=== PATIENT | female | born 1945 | race Caucasian/White ===

== ENCOUNTER 2017-07-22 12:16 | Observation (INO) | payer MEDICARE, OTHER ==
[~2017-07-22] VITALS: Ht 170.2 cm; Wt 88.1 kg
[~2017-07-22 12:16] MED LIST: ASCO500 PO; ASPI81EC PO; ATOR80 PO; Black Cohosh540 MG PO; CALCAVITD PO; CHOL10002 PO; CO Q10200 MG PO; CYAN500 PO; ESTR.75 PO; ESTROPIPATE; EZET10-80 PO; MAGGLU250 PO; MAGOXI400 PO; MEGARED OMEGA-1 EAC1 PO; MELA3 PO; MULVITMIND PO; NEBI5 PO; NIAC500 PO; OMEG1CAP30 PO; Omeprazole20 M1 PO; SIMV40 PO; Super B Comple150 MG PO; TOCO400 PO
[2017-07-22 12:56] LABS: BASOPHILS ABSOLUTE AUTO 0.04 K/mm3 (0.00-0.23); BASOPHILS PERCENT AUTO 1 % (0-2); EOSINOPHILS ABSOLUTE AUTO 0.09 K/mm3 (0.00-0.68); EOSINOPHILS PERCENT AUTO 1 % (0-6); Hematocrit 41.3 % (33.0-51.0); Hemoglobin 13.9 g/dL (11.5-16.0); IMMATURE GRAN ABSOLUTE AUTO 0.02 K/mm3 (0.00-0.10); IMMATURE GRAN PERCENT AUTO 0 % (0-1); LYMPHOCYTES ABSOLUTE AUTO 2.77 K/mm3 (0.84-5.20); LYMPHOCYTES PERCENT AUTO 36 % (21-46); MONOCYTES ABSOLUTE AUTO 0.58 K/mm3 (0.16-1.47); MONOCYTES PERCENT AUTO 8 % (4-13); Mean Corpuscular HGB Conc 33.7 g/dL (31.5-36.5); Mean Corpuscular Volume 95 fL (80-100); Mean Platelet Volume 10.3 fL (9.1-12.4); NEUTROPHILS ABSOLUTE AUTO 4.28 K/mm3 (1.96-9.15); NEUTROPHILS PERCENT AUTO 55 % (41-73); Platelet Count 250 K/mm3 (150-400); RDW Coefficient Variation 11.7 % (11.7-14.2); RDW Standard Deviation 40.2 fL (35.1-46.3); Red Blood Cell Count 4.35 M/mm3 (3.80-5.20); White Blood Cell Count 7.78 K/mm3 (4.00-11.30)
[2017-07-22 13:18] LABS: Alanine Aminotransfer (ALT/SGP 28 U/L (12-78); Albumin/Globulin Ratio 1.1 (0.8-1.8); Alk Phos 74 U/L (50-136); Anion Gap 10 mmol/L (6-16); Aspartate Aminotrans (AST/SGOT 18 U/L (12-37); Bilirubin, Total 0.7 mg/dL (0.1-1.0); Blood Urea Nitrogen 16 mg/dL (8-24); CO2, Blood 24 mmol/L (21-32); Calcium, Blood 8.8 mg/dL (8.5-10.1); Chloride, Blood 106 mmol/L (98-108); Globulin, Blood 3.5 g/dL (2.2-4.0); Glomerular Filtration Rate >60 (60-); Glucose, Blood 98 mg/dL (70-99); Potassium, Blood 4.2 mmol/L (3.5-5.5); Sodium, Blood 140 mmol/L (136-145); Total Protein, Blood 7.5 g/dL (6.4-8.2)
[2017-07-22] MEDS ORDERED: NEBI5 PO (14:03)
[2017-07-22] MEDS ORDERED: ATOR80 PO (14:03)
[2017-07-22] MEDS ORDERED: Omeprazole20 M1 PO (14:03)
[2017-07-22] MEDS ORDERED: ASPI81CH PO (16:38)
[2017-07-22] MEDS ORDERED: MAGOXI400 PO (16:39)
[2017-07-22] MEDS ORDERED: UBID100 PO (16:40)
[2017-07-22] MEDS ORDERED: Super B Comple1 EAC2 PO (16:40)
[2017-07-22] MEDS ORDERED: KRILL OIL 1,001 EACH PO (16:42)
[2017-07-22] MEDS ORDERED: MULTI VITAMIN1 EACH PO (16:43)
[2017-07-22] MEDS ORDERED: FISH OIL 1,0001 EAC1 PO (16:44)
[2017-07-23 05:47] LABS: BASOPHILS ABSOLUTE AUTO 0.03 K/mm3 (0.00-0.23); BASOPHILS PERCENT AUTO 1 % (0-2); EOSINOPHILS ABSOLUTE AUTO 0.09 K/mm3 (0.00-0.68); EOSINOPHILS PERCENT AUTO 2 % (0-6); Hematocrit 38.6 % (33.0-51.0); IMMATURE GRAN ABSOLUTE AUTO 0.01 K/mm3 (0.00-0.10); IMMATURE GRAN PERCENT AUTO 0 % (0-1); LYMPHOCYTES ABSOLUTE AUTO 2.72 K/mm3 (0.84-5.20); LYMPHOCYTES PERCENT AUTO 45 % (21-46); MONOCYTES PERCENT AUTO 8 % (4-13); Mean Corpuscular HGB 31.3 pg (26.0-34.0); Mean Corpuscular HGB Conc 33.7 g/dL (31.5-36.5); Mean Corpuscular Volume 93 fL (80-100); Mean Platelet Volume 10.5 fL (9.1-12.4); NEUTROPHILS ABSOLUTE AUTO 2.69 K/mm3 (1.96-9.15); NEUTROPHILS PERCENT AUTO 45 % (41-73); Platelet Count 206 K/mm3 (150-400); RDW Coefficient Variation 11.9 % (11.7-14.2); RDW Standard Deviation 40.4 fL (35.1-46.3); Red Blood Cell Count 4.16 M/mm3 (3.80-5.20); White Blood Cell Count 6.04 K/mm3 (4.00-11.30)
[2017-07-23 06:09] LABS: Albumin, Blood 3.6 g/dL (3.4-5.0); Anion Gap 8 mmol/L (6-16); Blood Urea Nitrogen 13 mg/dL (8-24); Bun/Creatinine Ratio 16.8 (12.0-20.0); CO2, Blood 26 mmol/L (21-32); Calcium, Blood 8.7 mg/dL (8.5-10.1); Chloride, Blood 106 mmol/L (98-108); Creatinine, Blood 0.78 mg/dL (0.40-1.00); Glomerular Filtration Rate >60 (60-); Glucose, Blood 95 mg/dL (70-99); Phosphorus, Blood 4.3 mg/dL (2.5-4.9); Sodium, Blood 140 mmol/L (136-145)
[2017-07-23] MEDS ORDERED: Prinivil10 MG PO (09:31)
== END 2017-07-23 10:48 | disposition home or self-care (01) ==
LOC: ER 12:16 → MEDS 12:17 → ER 15:12 → MEDS 15:12 → ENPENDDIS 07-23 09:03 → MEDS 07-23 10:48
PROVIDERS: Emergency Medicine; Hospitalist
DX: R07.9 Chest pain, unspecified (principal); E78.5 Hyperlipidemia, unspecified; K21.9 Gastro-esophageal reflux disease without esophagitis; E78.00 Pure hypercholesterolemia, unspecified; I16.0 Hypertensive urgency; K22.70 Barrett's esophagus without dysplasia; Z88.1 Allergy status to other antibiotic agents; Z91.041 Radiographic dye allergy status; Z79.899 Other long term (current) drug therapy; Z87.891 Personal history of nicotine dependence
CPT/HCPCS: 36415; 71046; 80053; 80069; 83880; 84484; 85025; 93005; 93010; 99285; G0378; J1650

== ENCOUNTER 2017-07-26 22:25 | Emergency (ER) | payer MEDICARE, OTHER ==
[~2017-07-26] VITALS: Ht 170.2 cm; Wt 81.7 kg
[~2017-07-26 22:25] MED LIST changes: +ASPI81CH PO; +FISH OIL 1,0001 EAC1 PO; +KRILL OIL 1,001 EACH PO; +MULTI VITAMIN1 EACH PO; +Prinivil10 MG PO; +Super B Comple1 EAC2 PO; +UBID100 PO
[2017-07-26 23:14] LABS: BASOPHILS ABSOLUTE AUTO 0.03 K/mm3 (0.00-0.23); BASOPHILS PERCENT AUTO 1 % (0-2); EOSINOPHILS ABSOLUTE AUTO 0.06 K/mm3 (0.00-0.68); EOSINOPHILS PERCENT AUTO 1 % (0-6); Hematocrit 38.9 % (33.0-51.0); IMMATURE GRAN ABSOLUTE AUTO 0.01 K/mm3 (0.00-0.10); IMMATURE GRAN PERCENT AUTO 0 % (0-1); LYMPHOCYTES ABSOLUTE AUTO 2.81 K/mm3 (0.84-5.20); LYMPHOCYTES PERCENT AUTO 43 % (21-46); MONOCYTES ABSOLUTE AUTO 0.49 K/mm3 (0.16-1.47); MONOCYTES PERCENT AUTO 7 % (4-13); Mean Corpuscular HGB 31.7 pg (26.0-34.0); Mean Corpuscular HGB Conc 33.4 g/dL (31.5-36.5); Mean Corpuscular Volume 95 fL (80-100); Mean Platelet Volume 10.5 fL (9.1-12.4); NEUTROPHILS PERCENT AUTO 48 % (41-73); Platelet Count 238 K/mm3 (150-400); RDW Coefficient Variation 11.8 % (11.7-14.2); RDW Standard Deviation 40.6 fL (35.1-46.3)
[2017-07-26 23:35] LABS: Alanine Aminotransfer (ALT/SGP 39 U/L (12-78); Albumin, Blood 3.8 g/dL (3.4-5.0); Albumin/Globulin Ratio 1.1 (0.8-1.8); Alk Phos 72 U/L (50-136); Anion Gap 10 mmol/L (6-16); Aspartate Aminotrans (AST/SGOT 24 U/L (12-37); Bilirubin, Total 0.4 mg/dL (0.1-1.0); Blood Urea Nitrogen 14 mg/dL (8-24); Bun/Creatinine Ratio 17.6 (12.0-20.0); CO2, Blood 22 mmol/L (21-32); Calcium, Blood 8.3 mg/dL (8.5-10.1); Chloride, Blood 107 mmol/L (98-108); Globulin, Blood 3.6 g/dL (2.2-4.0); Glomerular Filtration Rate >60 (60-); Glucose, Blood 113 mg/dL (70-99); Potassium, Blood 3.8 mmol/L (3.5-5.5); Sodium, Blood 139 mmol/L (136-145); Total Protein, Blood 7.4 g/dL (6.4-8.2); Troponin I <0.015 ng/mL (0.000-0.040)
== END 2017-07-27 02:39 | disposition home or self-care (01) ==
LOC: ER 22:25
PROVIDERS: Emergency Medicine
DX: R55 Syncope and collapse (principal); Z88.8 Allergy status to other drugs, medicaments and biological substances; Z79.899 Other long term (current) drug therapy; Z79.82 Long term (current) use of aspirin; Z86.73 Personal history of transient ischemic attack (TIA), and cerebral infarction without residual deficits; Z87.891 Personal history of nicotine dependence
CPT/HCPCS: 36415; 70450; 80053; 83880; 84484; 85025; 93005; 93010; 99284

== ENCOUNTER → 2017-12-15 | Outpatient (CLI) | payer MEDICARE, OTHER ==
[2017-12-15 10:51] LABS: BASOPHILS ABSOLUTE AUTO 0.04 K/mm3 (0.00-0.23); BASOPHILS PERCENT AUTO 1 % (0-2); EOSINOPHILS ABSOLUTE AUTO 0.14 K/mm3 (0.00-0.68); EOSINOPHILS PERCENT AUTO 2 % (0-6); Hematocrit 39.6 % (33.0-51.0); Hemoglobin 13.6 g/dL (11.5-16.0); IMMATURE GRAN ABSOLUTE AUTO 0.01 K/mm3 (0.00-0.10); IMMATURE GRAN PERCENT AUTO 0 % (0-1); LYMPHOCYTES ABSOLUTE AUTO 1.71 K/mm3 (0.84-5.20); LYMPHOCYTES PERCENT AUTO 25 % (21-46); MONOCYTES ABSOLUTE AUTO 0.46 K/mm3 (0.16-1.47); MONOCYTES PERCENT AUTO 7 % (4-13); Mean Corpuscular HGB 32.2 pg (26.0-34.0); Mean Corpuscular HGB Conc 34.3 g/dL (31.5-36.5); Mean Corpuscular Volume 94 fL (80-100); Mean Platelet Volume 10.5 fL (9.1-12.4); NEUTROPHILS ABSOLUTE AUTO 4.46 K/mm3 (1.96-9.15); NEUTROPHILS PERCENT AUTO 65 % (41-73); Platelet Count 238 K/mm3 (150-400); RDW Coefficient Variation 12.1 % (11.7-14.2); RDW Standard Deviation 41.6 fL (35.1-46.3); Red Blood Cell Count 4.22 M/mm3 (3.80-5.20); White Blood Cell Count 6.82 K/mm3 (4.00-11.30)
[2017-12-15 11:07] LABS: Anion Gap 9 mmol/L (6-16); Blood Urea Nitrogen 15 mg/dL (8-24); CO2, Blood 25 mmol/L (21-32); Calcium, Blood 8.6 mg/dL (8.5-10.1); Chloride, Blood 106 mmol/L (98-108); Creatinine, Blood 0.88 mg/dL (0.40-1.00); Glomerular Filtration Rate >60 (60-); Glucose, Blood 106 mg/dL (70-99); Potassium, Blood 4.2 mmol/L (3.5-5.5); Sodium, Blood 140 mmol/L (136-145); Thyroid Stimulating Hormone 2.206 uIU/mL (0.360-4.800)
[2017-12-15 11:08] LABS: Troponin I <0.017 ng/mL (0.000-0.040)
== END ==
LOC: LAB EV 10:40 → LAB SHORT 10:40
PROVIDERS: Family Medicine
DX: R03.0 Elevated blood-pressure reading, without diagnosis of hypertension (principal); R53.83 Other fatigue
CPT/HCPCS: 80048; 84443; 84484; 85025

== ENCOUNTER → 2018-09-18 | Outpatient (CLI) | payer MEDICARE, OTHER ==
[~2018-09-18] MED LIST changes: +CHOL10002
[2018-09-18 13:39] LABS: Adenovirus F 40/41 Not Detected (NOT DETECT); Astrovirus Not Detected (NOT DETECT); Campylobacter Sp Not Detected (NOT DETECT); Cryptosporidium Not Detected (NOT DETECT); Cyclospora Cayetanensis Not Detected (NOT DETECT); E. Coli O157 Not Detected (NOT DETECT); Entamoeba Histolytica Not Detected (NOT DETECT); Enteroaggregative E. coli-EAEC Not Detected (NOT DETECT); Enteropathogenic E. coli-EPEC Not Detected (NOT DETECT); Enterotoxigenic E. coli-ETEC Not Detected (NOT DETECT); Giardia Lamblia Not Detected (NOT DETECT); Norovirus GI/GII Not Detected (NOT DETECT); Plesiomonas Shigelloides Not Detected (NOT DETECT); Rotavirus A Not Detected (NOT DETECT); Salmonella Sp Not Detected (NOT DETECT); Sapovirus Not Detected (NOT DETECT); Shiga Toxin-prod E. coli-STEC Not Detected (NOT DETECT); Shigella/Enteroin E. coli-EIEC Not Detected (NOT DETECT); Vibrio Cholerae Not Detected (NOT DETECT); Vibrio Sp Not Detected (NOT DETECT); Yersinia Enterocolitica Not Detected (NOT DETECT)
== END | disposition home or self-care (01) ==
LOC: LAB SHORT 10:00 → LAB 10:00 → LAB FUT 09-18 08:25
PROVIDERS: Physician Assistant
DX: R19.7 Diarrhea, unspecified (principal)
CPT/HCPCS: 87507

== ENCOUNTER 2020-11-23 09:10 | Day surgery (SDC) | payer MEDICARE, OTHER ==
[~2020-11-23] VITALS: Ht 170.2 cm; Wt 88.1 kg
== END 2020-11-23 10:28 | disposition home or self-care (01) ==
LOC: ORSCSDS 09:10
PROVIDERS: Internal Medicine Gastroenterology
PROC: 0DB58ZX Excision of Esophagus, Via Natural or Artificial Opening Endoscopic, Diagnostic (ICD-10-PCS; principal; 2020-11-23 10:30)
DX: K21.9 Gastro-esophageal reflux disease without esophagitis (principal); K22.70 Barrett's esophagus without dysplasia; K44.9 Diaphragmatic hernia without obstruction or gangrene; Z79.899 Other long term (current) drug therapy
CPT/HCPCS: 88305; J2704; J7120

== ENCOUNTER 2021-04-22 02:58 | Emergency (ER) | payer MEDICARE, OTHER ==
[~2021-04-22] VITALS: Ht 170.2 cm; Wt 81.7 kg
[2021-04-22] MEDS ORDERED: AMLO5 PO (03:33)
[2021-04-22 04:01] LABS: BASOPHILS ABSOLUTE AUTO 0.03 K/mm3 (0.00-0.23); BASOPHILS PERCENT AUTO 0 % (0-2); EOSINOPHILS ABSOLUTE AUTO 0.12 K/mm3 (0.00-0.68); EOSINOPHILS PERCENT AUTO 1 % (0-6); Hematocrit 36.7 % (33.0-51.0); Hemoglobin 12.7 g/dL (11.5-16.0); IMMATURE GRAN ABSOLUTE AUTO 0.03 K/mm3 (0.00-0.10); IMMATURE GRAN PERCENT AUTO 0 % (0-1); LYMPHOCYTES ABSOLUTE AUTO 1.66 K/mm3 (0.84-5.20); LYMPHOCYTES PERCENT AUTO 18 % (21-46); MONOCYTES ABSOLUTE AUTO 0.96 K/mm3 (0.16-1.47); MONOCYTES PERCENT AUTO 11 % (4-13); Mean Corpuscular HGB Conc 34.6 g/dL (31.5-36.5); Mean Corpuscular Volume 92 fL (80-100); Mean Platelet Volume 10.2 fL (9.1-12.4); NEUTROPHILS ABSOLUTE AUTO 6.23 K/mm3 (1.96-9.15); NEUTROPHILS PERCENT AUTO 69 % (41-73); Platelet Count 233 K/mm3 (150-400); RDW Standard Deviation 41.2 fL (35.1-46.3); Red Blood Cell Count 3.97 M/mm3 (3.80-5.20); White Blood Cell Count 9.03 K/mm3 (4.00-11.30)
[2021-04-22 04:21] LABS: Albumin, Blood 3.8 g/dL (3.4-5.0); Albumin/Globulin Ratio 1.1 (0.8-1.8); Bilirubin, Total 0.9 mg/dL (0.1-1.0); Bun/Creatinine Ratio 10.8 (12.0-20.0); Calcium, Blood 8.5 mg/dL (8.5-10.1); Creatinine, Blood 1.02 mg/dL (0.40-1.00); Globulin, Blood 3.5 g/dL (2.2-4.0); Potassium, Blood 3.5 mmol/L (3.5-5.5); Total Protein, Blood 7.3 g/dL (6.4-8.2); Troponin I 0.015 ng/mL (0.000-0.040)
[2021-04-22 04:37] LABS: Influenza A, PCR NEGATIVE (NEGATIVE); Influenza B, PCR NEGATIVE (NEGATIVE); Resp Syncytial Virus, PCR NEGATIVE (NEGATIVE); SARS-Cov-2 (COVID-19) PCR, MMC NEGATIVE (NEGATIVE)
[2021-04-22] MEDS ORDERED: AMOCLA875 PO (04:52)
== END 2021-04-22 05:10 | disposition home or self-care (01) ==
LOC: ER 02:58
PROVIDERS: Student in an Organized Health Care Education/Training Program
DX: R05.9 Cough, unspecified (principal); R09.81 Nasal congestion; H66.90 Otitis media, unspecified, unspecified ear; Z20.822 Contact with and (suspected) exposure to COVID-19; Z88.1 Allergy status to other antibiotic agents; Z79.899 Other long term (current) drug therapy; Z79.82 Long term (current) use of aspirin; Z87.891 Personal history of nicotine dependence
CPT/HCPCS: 0241U; 36415; 71045; 80053; 84484; 85025; 93005; 93010; 96374; 99284-25; A9270; J1885

== ENCOUNTER 2022-07-06 14:20 | Day surgery (SDC) | payer MEDICARE, OTHER ==
[~2022-07-06 14:20] MED LIST changes: +AMLO5 PO; +AMOCLA875 PO
[2022-07-06] MEDS ORDERED: LOSA50 PO (14:40)
[2022-07-06] MEDS ORDERED: Inderal40 MG PO (14:41)
== END 2022-07-06 16:50 | disposition home or self-care (01) ==
LOC: ATC 14:20
DX: E83.42 Hypomagnesemia (principal); I10 Essential (primary) hypertension; Z90.711 Acquired absence of uterus with remaining cervical stump; K21.9 Gastro-esophageal reflux disease without esophagitis; E78.5 Hyperlipidemia, unspecified; Z96.641 Presence of right artificial hip joint; Z86.73 Personal history of transient ischemic attack (TIA), and cerebral infarction without residual deficits
CPT/HCPCS: 96365; 96366; J3475

== ENCOUNTER 2022-08-03 02:51 | Day surgery (SDC) | payer MEDICARE, OTHER ==
[~2022-08-03 02:51] MED LIST changes: +Inderal40 MG PO; +LOSA50 PO
[2022-08-03 13:30] VITALS: BP 131/71
== END 2022-08-03 15:38 | disposition home or self-care (01) ==
LOC: ATC 02:51
DX: E83.42 Hypomagnesemia (principal); G47.33 Obstructive sleep apnea (adult) (pediatric); K22.70 Barrett's esophagus without dysplasia
CPT/HCPCS: 96365; 96366; J3475

== ENCOUNTER 2022-09-12 17:28 | Emergency (ER) | payer MEDICARE, OTHER ==
[~2022-09-12] VITALS: Ht 162.6 cm; Wt 90.7 kg
[2022-09-12 17:54] LABS: BASOPHILS ABSOLUTE AUTO 0.03 K/mm3 (0.00-0.23); BASOPHILS PERCENT AUTO 0 % (0-2); EOSINOPHILS PERCENT AUTO 1 % (0-6); Hematocrit 35.5 % (33.0-51.0); Hemoglobin 12.3 g/dL (11.5-16.0); IMMATURE GRAN ABSOLUTE AUTO 0.03 K/mm3 (0.00-0.10); IMMATURE GRAN PERCENT AUTO 0 % (0-1); LYMPHOCYTES ABSOLUTE AUTO 2.65 K/mm3 (0.84-5.20); LYMPHOCYTES PERCENT AUTO 28 % (21-46); MONOCYTES ABSOLUTE AUTO 0.66 K/mm3 (0.16-1.47); MONOCYTES PERCENT AUTO 7 % (4-13); Mean Corpuscular HGB 33.1 pg (26.0-34.0); Mean Corpuscular HGB Conc 34.6 g/dL (31.5-36.5); Mean Corpuscular Volume 95 fL (80-100); Mean Platelet Volume 10.6 fL (9.1-12.4); NEUTROPHILS ABSOLUTE AUTO 5.86 K/mm3 (1.96-9.15); NEUTROPHILS PERCENT AUTO 63 % (41-73); Platelet Count 289 K/mm3 (150-400); RDW Standard Deviation 41.5 fL (35.1-46.3); Red Blood Cell Count 3.72 M/mm3 (3.80-5.20); White Blood Cell Count 9.33 K/mm3 (4.00-11.30)
[2022-09-12 18:47] LABS: Albumin, Blood 3.9 g/dL (3.4-5.0); Albumin/Globulin Ratio 1.1 (0.8-1.8); Bilirubin, Total 0.8 mg/dL (0.1-1.0); Calcium, Blood 6.2 mg/dL (8.5-10.1); Creatinine, Blood 1.11 mg/dL (0.40-1.00); Globulin, Blood 3.4 g/dL (2.2-4.0); Magnesium, Blood 0.6 mg/dL (1.6-2.4); Potassium, Blood 3.7 mmol/L (3.5-5.5); Total Protein, Blood 7.3 g/dL (6.4-8.2)
[2022-09-12] MEDS ORDERED: MAGNESIUM OXID500 MG PO (19:07)
[2022-09-12 22:00] VITALS: BP 122/73
== END 2022-09-12 22:00 | disposition home or self-care (01) ==
LOC: ER 17:28
PROVIDERS: Student in an Organized Health Care Education/Training Program
DX: E83.42 Hypomagnesemia (principal); Z88.1 Allergy status to other antibiotic agents; Z79.899 Other long term (current) drug therapy; Z79.82 Long term (current) use of aspirin; I10 Essential (primary) hypertension; K21.9 Gastro-esophageal reflux disease without esophagitis; E78.5 Hyperlipidemia, unspecified; G64 Other disorders of peripheral nervous system
CPT/HCPCS: 36415; 80053; 82330; 82607; 82728; 82746; 83036; 83540; 83550; 83735; 84100; 84165; 85025; 85651; 93005; 93010; 96365; 96366; 99283-25; J3475

== ENCOUNTER → 2024-01-23 | Outpatient (CLI) | payer MEDICARE, OTHER ==
[~2024-01-23] MED LIST changes: +ACET500 PO; +IBUP400 PO; +LIDO700A20 TOP; +MAGNESIUM OXID500 MG PO; +NEURONTIN300 MG PO; +OMEP20ER PO; +PEPCID40 MG PO; +Robaxin750 MG PO
[2024-01-23 12:48] LABS: Source, Urine Clean Catch
[2024-01-23 19:00] LABS: Appearance, Urine Clear (Clear); Bilirubin, Urine Neg (Neg); Blood, Urine Neg (Neg); Color, Urine Yellow (P-Yellow); Glucose Qualitative, Urine Neg (Neg); Ketones, Urine Neg (Neg); Leukocyte Esterase, Urine Neg (Neg); Nitrite, Urine Neg (Neg); Protein, Urine Neg (Neg); Urobilinogen, Urine NORM (Normal)
[2024-01-23 20:56] LABS: Adenovirus F 40/41 Not Detected (NOT DETECT); Astrovirus Not Detected (NOT DETECT); Campylobacter Sp Not Detected (NOT DETECT); Cryptosporidium Not Detected (NOT DETECT); Cyclospora Cayetanensis Not Detected (NOT DETECT); E. Coli O157 Not Detected (NOT DETECT); Entamoeba Histolytica Not Detected (NOT DETECT); Enteroaggregative E. coli-EAEC Not Detected (NOT DETECT); Enteropathogenic E. coli-EPEC Not Detected (NOT DETECT); Enterotoxigenic E. coli-ETEC Not Detected (NOT DETECT); Giardia Lamblia Not Detected (NOT DETECT); Norovirus GI/GII Not Detected (NOT DETECT); Plesiomonas Shigelloides Not Detected (NOT DETECT); Rotavirus A Not Detected (NOT DETECT); Salmonella Sp Not Detected (NOT DETECT); Sapovirus Not Detected (NOT DETECT); Shiga Toxin-prod E. coli-STEC Not Detected (NOT DETECT); Shigella/Enteroin E. coli-EIEC Not Detected (NOT DETECT); Vibrio Cholerae Not Detected (NOT DETECT); Vibrio Sp Not Detected (NOT DETECT); Yersinia Enterocolitica Not Detected (NOT DETECT)
== END | disposition home or self-care (01) ==
LOC: LAB 09:25 → LAB SHORT 09:25
PROVIDERS: Internal Medicine
DX: R19.7 Diarrhea, unspecified (principal); R30.0 Dysuria
CPT/HCPCS: 81003; 87507

== ENCOUNTER → 2024-02-08 | Outpatient (CLI) | payer MEDICARE, OTHER ==
[2024-02-08 15:12] LABS: Source, Urine Voided
[2024-02-08 16:58] LABS: Appearance, Urine Hazy (Clear); Bilirubin, Urine Neg (Neg); Blood, Urine Neg (Neg); Color, Urine Yellow (P-Yellow); Glucose Qualitative, Urine Neg (Neg); Ketones, Urine Neg (Neg); Leukocyte Esterase, Urine 1+ (Neg); Nitrite, Urine Neg (Neg); Protein, Urine 1+ (Neg); Urobilinogen, Urine NORM (Normal); pH, Urine 6.5 (5.0-8.0)
[2024-02-08 17:15] LABS: Bacteria Few /hpf; Red Blood Cells, Urine 0-2 /hpf (0-2); Squamous Epithelial Cells Mod /hpf (Few)
[2024-02-08 18:41] LABS: Creatinine, Urine Random 91.2 mg/dL (27.00-270.00); Protein, Urine Random 16.6 mg/dL (0.0-11.9); Protein/Creat Ratio, Ur Random 0.2
== END ==
LOC: LAB SHORT 15:04 → LAB 15:04
PROVIDERS: Internal Medicine Nephrology
DX: I12.9 Hypertensive chronic kidney disease with stage 1 through stage 4 chronic kidney disease, or unspecified chronic kidney disease (principal); N18.31 Chronic kidney disease, stage 3a
CPT/HCPCS: 81001; 82570; 84156; 84300; 87086

== ENCOUNTER → 2024-08-07 | Outpatient (CLI) | payer MEDICARE, OTHER ==
[2024-08-07 09:52] LABS: BASOPHILS ABSOLUTE AUTO 0.05 K/mm3 (0.00-0.23); BASOPHILS PERCENT AUTO 0 % (0-2); EOSINOPHILS ABSOLUTE AUTO 0.02 K/mm3 (0.00-0.68); EOSINOPHILS PERCENT AUTO 0 % (0-6); Hematocrit 36.2 % (33.0-51.0); Hemoglobin 12.4 g/dL (11.5-16.0); IMMATURE GRAN ABSOLUTE AUTO 0.09 K/mm3 (0.00-0.10); IMMATURE GRAN PERCENT AUTO 1 % (0-1); LYMPHOCYTES ABSOLUTE AUTO 1.53 K/mm3 (0.84-5.20); LYMPHOCYTES PERCENT AUTO 10 % (21-46); MONOCYTES ABSOLUTE AUTO 1.42 K/mm3 (0.16-1.47); MONOCYTES PERCENT AUTO 9 % (4-13); Mean Corpuscular HGB 33.2 pg (26.0-34.0); Mean Corpuscular HGB Conc 34.3 g/dL (31.5-36.5); Mean Corpuscular Volume 97 fL (80-100); Mean Platelet Volume 10.1 fL (9.1-12.4); NEUTROPHILS ABSOLUTE AUTO 12.82 K/mm3 (1.96-9.15); NEUTROPHILS PERCENT AUTO 81 % (41-73); Platelet Count 230 K/mm3 (150-400); RDW Coefficient Variation 11.8 % (11.7-14.2); RDW Standard Deviation 41.6 fL (35.1-46.3); Red Blood Cell Count 3.73 M/mm3 (3.80-5.20); White Blood Cell Count 15.93 K/mm3 (4.00-11.30)
[2024-08-07 10:07] LABS: Albumin, Blood 3.6 g/dL (3.4-5.0); Albumin/Globulin Ratio 0.9 (0.8-1.8); Bun/Creatinine Ratio 10.3 (12.0-20.0); Calcium, Blood 8.8 mg/dL (8.5-10.1); Creatinine, Blood 1.45 mg/dL (0.40-1.00); Globulin, Blood 3.9 g/dL (2.2-4.0); Potassium, Blood 3.9 mmol/L (3.5-5.5); Total Protein, Blood 7.5 g/dL (6.4-8.2)
== END | disposition home or self-care (01) ==
LOC: LAB 09:48 → LAB SHORT 09:48
PROVIDERS: Physician Assistant Medical
DX: R11.2 Nausea with vomiting, unspecified (principal)
CPT/HCPCS: 80053; 82248; 85025